=== PATIENT | male | born 1955 | race Caucasian/White ===

== ENCOUNTER 2021-11-25 16:51 | Inpatient (IN) | payer BC ==
[~2021-11-25] VITALS: Ht 190.5 cm; Wt 113.4 kg
[2021-11-25 19:08] LABS: HEMOGLOBIN 14.6 gm/dl (14.0-17.5); RED BLOOD COUNT 5.06 M/UL (4.20-5.50); WHITE BLOOD COUNT 8.9 K/UL (4.5-11.0)
[2021-11-25 19:14] LABS: BUN/CREATININE RATIO 19 (0-10)
[2021-11-26] MEDS ORDERED: FLOMAX0.4 MG PO (09:09)
[2021-11-26] MEDS ORDERED: POTASSIUM CITR10 ME1 PO (09:11)
[2021-11-26] MEDS ORDERED: CRESTOR5 MG PO (09:11)
[2021-11-26] MEDS ORDERED: DITROPAN XL5 MG PO (09:12)
[2021-11-26] MEDS ORDERED: GABAPENTIN300 MG PO (09:12)
[2021-11-26] MEDS ORDERED: VITAMIN D21250 MCG PO (09:13)
--- NOTE | 2021-11-26 17:34 | NUR ---
WOUND TO RIGHT FOOT CULTURED AND PACKED WITH SM AMT OF KERLIX PER MD ORDER. TEGADERM APPLIED. NO ODOR NOTED. MINIMAL BLEEDING NOTED. NO PURULENT DRAINAGE.
[2021-11-27 05:37] LABS: HEMOGLOBIN 13.7 gm/dl (14.0-17.5); RED BLOOD COUNT 4.59 M/UL (4.20-5.50)
[2021-11-27 05:40] LABS: WHITE BLOOD COUNT 4.7 K/UL (4.5-11.0)
[2021-11-27 06:03] LABS: BUN/CREATININE RATIO 18 (0-10)
[2021-11-27] MEDS ORDERED: BENICAR HCT 401 EACH PO (09:14)
--- NOTE | 2021-11-28 04:33 | NUR ---
pt having a I&D today with Dr. Stern. Pt's covid test is within the 72 hours up until 11/28/2021. So the patient is good for surgery this morning.
[2021-11-28 06:21] LABS: HEMOGLOBIN 14.2 gm/dl (14.0-17.5); RED BLOOD COUNT 4.98 M/UL (4.20-5.50); WHITE BLOOD COUNT 4.8 K/UL (4.5-11.0)
[2021-11-28 07:05] LABS: BUN/CREATININE RATIO 23 (0-10)
--- NOTE | 2021-11-28 10:50 | NUR ---
DR. STEWARD AT BEDSIDE, EVALUATED PATIENT'S WOUND. WOUND CARE PERFORMED PER DR. GILL' ORDERS. PATIENT TOLERATED WELL.
[2021-11-29 06:42] LABS: HEMOGLOBIN 14.8 gm/dl (14.0-17.5); RED BLOOD COUNT 4.95 M/UL (4.20-5.50); WHITE BLOOD COUNT 4.3 K/UL (4.5-11.0)
[2021-11-29 07:02] LABS: BUN/CREATININE RATIO 18 (0-10)
--- NOTE | 2021-11-29 10:31 | NUR ---
wound care performed per physician's order with dr. culp at bedside to assess wound. improvement noted. patient tolerated well.
[2021-11-29] MEDS ORDERED: TIROSINT100 MCG PO (10:35)
[2021-11-29] MEDS ORDERED: UBRELVY PO (10:39)
[2021-11-30 04:49] LABS: HEMOGLOBIN 14.1 gm/dl (14.0-17.5); RED BLOOD COUNT 4.84 M/UL (4.20-5.50); WHITE BLOOD COUNT 4.6 K/UL (4.5-11.0)
[2021-11-30 05:14] LABS: BUN/CREATININE RATIO 22 (0-10)
[2021-12-01 05:52] LABS: HEMOGLOBIN 13.4 gm/dl (14.0-17.5); RED BLOOD COUNT 4.65 M/UL (4.20-5.50); WHITE BLOOD COUNT 5.6 K/UL (4.5-11.0)
[2021-12-01 06:27] LABS: BUN/CREATININE RATIO 23 (0-10)
--- NOTE | 2021-12-02 03:56 | NUR ---
PATIENT REQUESTING MEDICATION FOR ANXIETY. CONTACTED DR. DESOUZA. NEW ORDER NOTED FOR VISTARIL 25 MG PO Q6HP.
[2021-12-02 07:16] LABS: HEMOGLOBIN 13.3 gm/dl (14.0-17.5); RED BLOOD COUNT 4.61 M/UL (4.20-5.50); WHITE BLOOD COUNT 4.8 K/UL (4.5-11.0)
[2021-12-02 07:34] LABS: BUN/CREATININE RATIO 22 (0-10)
[2021-12-03 04:26] LABS: HEMOGLOBIN 13.4 gm/dl (14.0-17.5); RED BLOOD COUNT 4.64 M/UL (4.20-5.50); WHITE BLOOD COUNT 5.8 K/UL (4.5-11.0)
[2021-12-03 04:41] LABS: BUN/CREATININE RATIO 17 (0-10)
--- NOTE | 2021-12-03 09:23 | NUR ---
DR. Aguilar on the floor with the patient. no wound care ordered, and per patient he was informed by Dr. Stern no wound care until his md visit next week. Dr. Aguilar aware of the patient information of wound care.
[2021-12-03] MEDS ORDERED: LEVOFLOXACIN750 MG PO (09:41)
--- NOTE | 2021-12-03 12:31 | NUR ---
notified PT services prior to d/c
== END 2021-12-03 14:01 | disposition home or self-care (01) | DRG 623 ==
LOC: ER1 16:51 → M/S 18:24 → CDU 18:24 → 3 EAST 11-26 09:34 → M/S 11-26 18:29
PROVIDERS: Emergency Medicine; Internal Medicine; Podiatrist Foot & Ankle Surgery; ADMIT Internal Medicine
PROC: 0HRMXK3 Replacement of Right Foot Skin with Nonautologous Tissue Substitute, Full Thickness, External Approach (ICD-10-PCS; 2021-11-30)
PROC: 0JBQ0ZZ Excision of Right Foot Subcutaneous Tissue and Fascia, Open Approach (ICD-10-PCS; principal; 2021-11-30 13:00)
DX: E11.621 Type 2 diabetes mellitus with foot ulcer (principal); L03.818 Cellulitis of other sites; L02.611 Cutaneous abscess of right foot; E11.628 Type 2 diabetes mellitus with other skin complications; Z20.822 Contact with and (suspected) exposure to COVID-19; Z96.642 Presence of left artificial hip joint; G43.909 Migraine, unspecified, not intractable, without status migrainosus; I10 Essential (primary) hypertension; G57.91 Unspecified mononeuropathy of right lower limb; I48.0 Paroxysmal atrial fibrillation; F41.9 Anxiety disorder, unspecified; E78.00 Pure hypercholesterolemia, unspecified; L89.612 Pressure ulcer of right heel, stage 2; E11.65 Type 2 diabetes mellitus with hyperglycemia; K59.00 Constipation, unspecified; E03.9 Hypothyroidism, unspecified; B95.62 Methicillin resistant Staphylococcus aureus infection as the cause of diseases classified elsewhere; Z09 Encounter for follow-up examination after completed treatment for conditions other than malignant neoplasm; Z79.01 Long term (current) use of anticoagulants; Z79.4 Long term (current) use of insulin; G62.9 Polyneuropathy, unspecified
CPT/HCPCS: 36415; 73630; 73701; 80048; 80053; 80202; 82550; 82553; 82607; 82962; 83036; 83605; 83874; 84439; 84443; 84484; 85025; 85027; 85652; 86140; 87040; 87070; 87077; 87186; 87205; 93005; 96365; 96366; 96372; 96375; 96376; 97116; 97161; 99285; J0692; J1100; J1650; J1885; J2001; J2250; J2270; J2405; J2543; J2704; J2765; J3010; J3370; J7030; J7070; J7120; Q0177; Q9967; U0002